=== PATIENT | male | born 1975 | race Two or more races ===

== ENCOUNTER 2022-04-04 00:52 | Day surgery (SDC) | payer OTHER, SELFPAY ==
--- NOTE | 2022-04-03 16:24 | P.HP_ITS ---
History of Present Illness History of Present Illness Consent: Risks, benefits, and alternatives have been discussed and questions answered. Patient agrees to proceed with procedure. Chief complaint: family hx colon ca, rectal bleed Narrative: Maricarmen Carmen is a 47 year old male His father had colon cancer in his 60s. The patient also has seen bright red blood in his stools from time to time. He occasionally has mild constipation. Review of Systems Review of Systems: All systems reviewed & are unremarkable except as noted in HPI and below PMFSH Past Medical History Medical History HLD (hyperlipidemia) HTN (hypertension) Family History Family History Father Carcinoma of colon Mother Diabetes mellitus Hypertension Heart disease Social History Social History Smoking status: Never smoker Tobacco type: smokeless tobacco Additional smoking assessment comments: smokes hooka Alcohol intake: never Substance use: never Living arrangements: with family Spiritual care concerns: No Meds Home Medications and Allergies Home Medications Medication Instructions Recorded Confirmed Type atorvastatin 40 mg tablet 40 mg PO DAILY 10/24/21 03/19/22 History hydrochlorothiazide 12.5 mg capsule 12.5 mg PO DAILY 10/24/21 03/19/22 History losartan 50 mg tablet 50 mg PO DAILY 10/24/21 03/19/22 History sodium sul 1.479 gram-potas ch See Rx Instructions PO PER PKG DIR 11/08/21 03/19/22 Rx 0.188 gram-magnes sul 0.225 gram #24 tabs tablet (Sutab) Allergies Allergy/AdvReac Type Severity Reaction Status Date / Time No Known Allergies Allergy Verified 04/04/22 09:45 Exam Resp: Auscultation: clear to auscultation bilaterally Cardio: Rate: regular rate Rhythm: regular rhythm GI: GI Palp: Yes Soft to palpation and No Tenderness to palpation present (GI) Assessment and Plan Assessment and plan (1) Blood in stool: Code(s): K92.1 - Melena Status: Acute Assessment and Plan: Colonoscopy with possible biopsy or polypectomy or cautery or injection of sub stances.
[2022-04-04 09:46] VITALS: BP 144/86; PULSE 80; RESP 18; TEMP 36.2; O2SAT 99
[2022-04-04] MEDS: LACTATED RINGERS 1,000 ML 150 ML IV CONT (09:59)
--- NOTE | 2022-04-04 10:02 | P.PNAN_ITS ---
Anes - Initial Pre Proc Eval Procedure: Operation Date: 04/04/22 11:15 Proposed Procedures p Colonoscopy - Arnel Wong MD Date/Time: 04/04/22 10:02 Surgeon: Arnel Wong MD Pre Op Diagnosis: family hx colon ca, rectal bleed Patient Data Age: 47 Gender: M Height: 1.65 m Weight: 88.6 kg Last Vital Signs Temp 97.1 F L 04/04/22 09:46 Pulse 80 04/04/22 09:46 Resp 18 04/04/22 09:46 BP 144/86 H 04/04/22 09:46 Pulse Ox 99 04/04/22 09:46 O2 Del Method Room Air 04/04/22 09:46 Allergies Allergy/AdvReac Type Severity Reaction Status Date / Time No Known Allergies Allergy Verified 04/04/22 09:45 Home Medications Medication Instructions Recorded Confirmed Type atorvastatin 40 mg tablet 40 mg PO DAILY 10/24/21 03/19/22 History hydrochlorothiazide 12.5 mg capsule 12.5 mg PO DAILY 10/24/21 03/19/22 History losartan 50 mg tablet 50 mg PO DAILY 10/24/21 03/19/22 History sodium sul 1.479 gram-potas ch See Rx Instructions PO PER PKG DIR 11/08/21 03/19/22 Rx 0.188 gram-magnes sul 0.225 gram #24 tabs tablet (Sutab) Patient hx anesthesia problems: none Family hx anesthesia problems: none Results Review: All pre-operative results and documents have been reviewed as part of the pre- operative evaluation. [facility] Past Medical History Medical History (Updated 12/10/21 @ 08:34 by Arnel Wong MD) HLD (hyperlipidemia) HTN (hypertension) Family History Family History (Updated 10/24/21 @ 13:25 by Basia Augustin MA) Father Carcinoma of colon Mother Diabetes mellitus Hypertension Heart disease Social History Social History Smoking status: Never smoker Tobacco type: smokeless tobacco Additional smoking assessment comments: smokes hooka Alcohol intake: never Substance use: never Living arrangements: with family Spiritual care concerns: No Anes - Eval Final PreProcedure Day of Procedure 04/04/22 10:02 Patient weight: normal Heart: regular rate and rhythm Lungs: clear to auscultation Airway: Mallampati scale class II Neurological: alert and oriented Last oral intake: >/= 8 hours ASA classification: II Emergent: no Anesthetic plan: proceed Anesthesia type and monitoring: general GIVS and standard monitoring Results Review: All pre-operative results and documents have been reviewed as part of the pre- operative evaluation. Informed Consent: The patient's anesthetic plan and its attendant risks and benefits were discussed with the patient/family/POA. Questions were solicited and answers provided to the satisfaction of the patient/family/POA.
[2022-04-04] MEDS: SIMETHICONE ORAL SUSPENSION 20 MG/0.3 ML 30 ML BOTTLE 0.6 ML IRRIGATION (11:09)
[2022-04-04 11:18] VITALS: BP 115/72; PULSE 71; RESP 16; O2SAT 96
[2022-04-04 11:28] VITALS: BP 117/90; PULSE 68; RESP 22; O2SAT 97
[2022-04-04 11:38] VITALS: BP 127/86; PULSE 69; RESP 20; O2SAT 97
== END 2022-04-04 11:52 | disposition home or self-care (01) ==
PROVIDERS: PCP Internal Medicine; Visit Provider Internal Medicine Gastroenterology
PROC: 0DJD8ZZ Inspection of Lower Intestinal Tract, Via Natural or Artificial Opening Endoscopic (ICD-10-PCS; CPT 45378; principal; 2022-04-04 11:15)
DX: K92.1 Melena (principal); K60.2 Anal fissure, unspecified; D12.5 Benign neoplasm of sigmoid colon; Z80.0 Family history of malignant neoplasm of digestive organs; I10 Essential (primary) hypertension; E78.5 Hyperlipidemia, unspecified; F17.290 Nicotine dependence, other tobacco product, uncomplicated
CPT/HCPCS: 45385; 88305; J2704; J7120